=== PATIENT | male | born 1945 | race Caucasian/White ===

== ENCOUNTER 2022-01-30 18:32 | Emergency (ER) | payer MEDICARE ==
[2022-01-30 20:09] VITALS: BP 132/84; PULSE 74
[2022-01-30 20:09] LABS: ANION GAP 12.2 mEq/L (7-13)
[2022-01-30] MEDS ORDERED: Azithromycin 250 MG Tab PO ONE (20:33)
== END 2022-01-30 20:47 | disposition home or self-care (01) ==
LOC: DL.ED 18:32
DX: J40 Bronchitis, not specified as acute or chronic (principal)
CPT/HCPCS: 36415; 71046; 80053; 83605; 85025; 87040; 99283; A9270

== ENCOUNTER 2022-03-03 16:25 | Emergency (ER) | payer MEDICARE ==
[2022-03-03 16:42] VITALS: BP 140/90; PULSE 73
== END 2022-03-03 17:51 | disposition home or self-care (01) ==
LOC: DL.ED 16:25
DX: H11.32 Conjunctival hemorrhage, left eye (principal)
CPT/HCPCS: 99282; 99283

== ENCOUNTER 2025-01-02 17:30 | Emergency (ER) | payer MEDICARE, OTHER ==
[2025-01-02] MEDS ORDERED: Sodium Chloride 0.9% 10 ML Syringe FLUSH PRN (17:56)
[2025-01-02 18:05] LABS: BASOPHILS PERCENT AUTO 0.2 % (0.0-1.0); EOSINOPHILS PERCENT AUTO 0.4 % (1.0-3.0); HEMATOCRIT 38.2 % (40.0-54.0); HEMOGLOBIN 12.8 g/dL (14.0-18.0); MEAN CORPUSCULAR HEMOGLOBIN 31.6 pg (27.0-34.0); MEAN CORPUSCULAR HGB CONC 33.5 g/dL (33.0-35.0); MEAN CORPUSCULAR VOLUME 94.3 fL (80-100); MONOCYTES PERCENT AUTO 9.8 % (2-8); NEUTROPHILS PERCENT AUTO 81.6 % (42.2-75.2); PLATELET COUNT,PLT 296 10^3/uL (150-450); RED BLOOD CELL COUNT 4.05 10^6/uL (4.6-6.2); WHITE BLOOD CELL COUNT,WBC 12.8 10^3/uL (5.0-10.0)
[2025-01-02 18:26] LABS: A/G RATIO 0.73; ALANINE AMINOTRANSFERASE,ALT 138 U/L (16-63); ALKALINE PHOSPHATASE 341 U/L (46-116); ANION GAP 12.1 mEq/L (7-13); ASPARTATE AMNIOTRANSFERASE,AST 56 U/L (15-37); BILIRUBIN TOTAL 10.9 mg/dL (0.2-1.0); BLOOD UREA NITROGEN,BUN 16 mg/dL (7-18); BUN/CREATININE RATIO 13.4 (No establ ref range); CALCIUM 9.1 mg/dL (8.5-10.1); CARBON DIOXIDE,CO2 29 mmol/L (21-32); CHLORIDE,CL 99 mmol/L (98-107); CREATINE KINASE,CK 79 U/L (39-308); CREATININE 1.19 mg/dL (0.70-1.30); EST CRCL DRUG DOSING (CG) 53.68 mL/min; GLUCOSE RANDOM 120 mg/dL (70-99); LIPASE 57 U/L (16-77); MAGNESIUM 1.9 mg/dL (1.8-2.4); PHOSPHORUS 2.4 mg/dL (2.6-4.7); POTASSIUM,K 3.1 mmol/L (3.5-5.1); PROTEIN TOTAL,TP 7.1 g/dL (6.4-8.2); SODIUM,NA 137 mmol/L (136-145)
[2025-01-02 18:27] LABS: ESTIMATED GFR 63 mL/min (>=60); ETHANOL BLOOD MEDICAL < 3 mg/dL (0)
[2025-01-02] MEDS: Iopamidol 612 MG/ML 100 ML Bottle IVPUSH ONE (18:32)
[2025-01-02 18:33] LABS: LACTIC ACID 1.7 mmol/L (0.4-2.0)
[2025-01-02 18:41] LABS: INR 1.3 (0.9-1.2); PROTHROMBIN TIME 13.4 SEC (9.0-12.0); PTT,PARTIAL THROMBOPLSTIN TIME 28.1 SEC (22.0-34.0)
[2025-01-02 19:13] LABS: APPEARANCE,URINE CLEAR (CLEAR); BILIRUBIN,URINE LARGE (NEGATIVE); COLOR,URINE DARK YELLOW (YELLOW); GLUCOSE,URINE NEGATIVE (NEGATIVE); KETONES,URINE 40 (NEGATIVE); LEUKOCYTE ESTERASE,URINE NEGATIVE (NEGATIVE); NITRITE,URINE NEGATIVE (NEGATIVE); OCCULT BLOOD,URINE TRACE-INTACT (NEGATIVE); PH,URINE 7.5 (5.0-9.0); PROTEIN,URINE 100 (NEGATIVE); UROBILINOGEN,URINE 0.2 mg/dL (0.2-1.0)
[2025-01-02 19:44] LABS: BACTERIA,URINE RARE /HPF (0-FEW/HPF); EPITHELIAL CELLS,URINE RARE /HPF (NOT SEEN); WBC,URINE 0-5 /HPF (0-5/HPF)
[2025-01-02] MEDS: NS with KCl 40mEq 1,000 ML IV SCH (19:55)
[2025-01-02] MEDS: Ondansetron 4 MG/2 ML SDV IVPUSH ONE (20:12)
[2025-01-02] MEDS: HYDROmorphone 1 MG/ML Syringe IVPUSH ONE (20:12)
[2025-01-02 21:20] VITALS: BP 143/90; PULSE 75
== END 2025-01-02 21:21 ==
LOC: DL.ED 17:30
DX: K83.8 Other specified diseases of biliary tract (principal); E87.6 Hypokalemia; R17 Unspecified jaundice
CPT/HCPCS: 36415; 74177; 80053; 80143; 80179; 80307; 81001; 82550; 83605; 83690; 83735; 84100; 85025; 85610; 85730; 86140; 87040; 96365; 96375; 99284; 99285; J1171; J2405; J3480; Q9967